=== PATIENT | female | born 1945 | race Caucasian/White ===

== ENCOUNTER 2018-07-19 17:17 | Emergency (ER) | payer MEDICARE ==
[~2018-07-19] VITALS: Ht 154.9 cm; Wt 77.3 kg
[~2018-07-19 17:17] MED LIST: ALEVE220 MG PO; LISINOPRIL-HCTZ1 T13 PO; LISINOPRIL5 MG; LOPRESSOR25 MG PO; LOPRESSOR50 MG; NORCO 10/325 TA1 TA1 PO; ULTRAM50 MG PO; VITAMIN D31000 UNIT PO
[2018-07-19 17:25] VITALS: Ht 154.9 cm; Wt 77.3 kg
[2018-07-19] MEDS ORDERED: ZETIA10 MG PO (17:28)
[2018-07-19] MEDS ORDERED: OMEPRAZOLE20 M1 PO (17:29)
[2018-07-19] MEDS ORDERED: ZOLOFT50 MG PO (17:29)
[2018-07-19] MEDS ORDERED: NORVASC5 MG PO (17:30)
[2018-07-19] MEDS ORDERED: VITAMIN B12 (17:31)
[2018-07-19 18:01] LABS: BASOPHILS 0.4 % (0-2); EOSINOPHILS 6.2 % (0-7); HEMATOCRIT 37.7 % (36.0-48.0); HEMOGLOBIN 12.1 g/dL (12-16); IMMATURE GRANULOCYTES 0.5 % (0-5); LYMPHOCYTES 21.8 % (15-50); MCH 28.9 pg (26.0-34.0); MCHC 32.1 g/dL (31.0-37.0); MEAN PLATELET VOLUME 9.8 fL (7.4-10.4); MONOCYTES 9.8 % (2-11); NEUTROPHILS 61.3 % (40-80); PLATELET COUNT 283 10x3/uL (130-400); RBC 4.19 10x6/uL (4.00-5.40); RDW 13.3 % (11.5-14.5); WBC 9.5 10x3/uL (4.8-10.8)
[2018-07-19 18:06] LABS: UDS - AMPHET NEGATIVE QUAL (NEGATIVE); UDS - BARB NEGATIVE QUAL (NEGATIVE); UDS - BENZO NEGATIVE QUAL (NEGATIVE); UDS - COCAINE NEGATIVE QUAL (NEGATIVE); UDS - OPIATE NEGATIVE QUAL (NEGATIVE); UDS - PCP NEGATIVE QUAL (NEGATIVE); UDS - THC NEGATIVE QUAL (NEGATIVE)
[2018-07-19 18:11] LABS: APPEARANCE HAZY (CLEAR); BILIRUBIN NEGATIVE (NEGATIVE); COLOR YELLOW (YELLOW); GLUCOSE NEGATIVE (NEGATIVE); KETONE NEGATIVE (NEGATIVE); NITRITE NEGATIVE (NEGATIVE); PROTEIN NEGATIVE (NEGATIVE); SPECIFIC GRAVITY 1.015 (1.005-1.020); UROBILINOGEN NORMAL (NORMAL)
[2018-07-19 18:12] LABS: BACTERIA FEW /hpf (NONE SEEN); EPITHELIAL CELLS 0-5 /hpf (0-5); RED CELLS - URINE 0-5 /hpf (0-5); WHITE CELLS - URINE 0-5 /hpf (0-5)
[2018-07-19 18:14] LABS: ALBUMIN 4.3 g/dL (3.4-5.0); ALKALINE PHOSPHATASE 86 U/L (46-116); ALT (SGPT) 36 U/L (10-68); CALC OSMOLALITY 285 mosm/kg (275-300); CARBON DIOXIDE 28.7 mmol/L (21.0-32.0); CHLORIDE - SERUM 104 mmol/L (98-107); CREATININE - SERUM 1.2 mg/dL (0.6-1.3); GLUCOSE 108 mg/dL (74-106); POTASSIUM - SERUM 3.8 mmol/L (3.5-5.1); PROTEIN - SERUM 7.9 g/dL (6.4-8.2); SODIUM 142 mmol/L (136-145); UREA NITROGEN 18 mg/dL (7-18); eGFR NON AFRICAN AMERICAN 47 mL/min (90-120)
[2018-07-19 18:22] LABS: AMYLASE - SERUM 86 U/L (25-115); LIPASE 190 U/L (73-393); PRO BNP 165 pg/mL (0-125)
[2018-07-19 18:29] LABS: TROPONIN-I < 0.017 ng/mL (0.000-0.060)
[2018-07-19 20:09] VITALS: BP 156/78
== END 2018-07-19 20:11 | disposition home or self-care (01) ==
LOC: D.ER 17:17
PROVIDERS: Family Medicine
DX: R11.10 Vomiting, unspecified (principal); R55 Syncope and collapse; I10 Essential (primary) hypertension